=== PATIENT | male | born 1965 | race Caucasian/White ===

== ENCOUNTER 2017-08-23 10:01 | Inpatient (IN) | payer OTHER ==
[~2017-08-23] VITALS: Ht 172.7 cm; Wt 74.8 kg
[~2017-08-23 10:01] MED LIST: BUDE10.2 IH; CLAR-13 PO
[2017-08-23] MEDS ORDERED: IV NORMAL SALINE 1,000ML 1,000 ML IV SCH ×2 (10:15→12:15)
[2017-08-23] MEDS ORDERED: IOHEXOL 300 MG/ML 75 ML VIAL. IV ONE (10:30)
[2017-08-23] MEDS ORDERED: CONTRAST GIVEN MC PRN (10:30)
[2017-08-23 11:00] LABS: ALBUMIN 3.7 g/dL (3.4-5.0); ALBUMIN/GLOBULIN RATIO 1.1 (1.0-1.7); CALCIUM 8.5 mg/dL (8.5-10.1); CREATININE 1.1 mg/dL (0.7-1.3); POTASSIUM 4.1 mmol/L (3.5-5.1); TOTAL PROTEIN 7.1 g/dL (6.4-8.2)
[2017-08-23 11:09] LABS: BASO # 0.1 x10^3/uL (0.0-0.2); BASO % 1 % (0-3); EOS # 0.2 x10^3/uL (0.0-0.7); EOS % 1 % (0-3); HEMATOCRIT 49.5 % (39.0-53.0); HEMOGLOBIN 17.5 g/dL (13.0-17.5); LYMPH % 19 % (24-48); MEAN CORPUSCULAR HEMOGLOBIN 33 pg (25-35); MEAN CORPUSCULAR HGB CONC 35 g/dL (31-37); MEAN CORPUSCULAR VOLUME 93 fL (79-100); MONO # 1.8 x10^3/uL (0.0-1.1); MONO % 11 % (0-9); NEUT # 10.5 x10^3uL (1.8-7.7); NEUT % 67 % (31-73); PLATELET COUNT 220 x10^3/uL (140-400); RED BLOOD COUNT 5.33 x10^6/uL (4.30-5.70); RED CELL DISTRIBUTION WIDTH 12.7 % (11.5-14.5); WHITE BLOOD COUNT 15.5 x10^3/uL (4.0-11.0)
--- NOTE | 2017-08-23 11:23 | RAD ---
CT scan of the abdomen and pelvis with contrast 08/23/2017 Clinical history: Lower abdominal pain for one day. Technique: After the intravenous administration of 75 cc of Omnipaque 300 only, contiguous, 5 mm axial sections were obtained through the abdomen and pelvis. One or more of the following individualized dose reduction techniques were utilized for this study: 1. Automated exposure control. 2. Adjustment of the mA and/or kV according to patient size. 3. Use of iterative reconstruction technique. Findings: Images through the lung bases are within normal limits. The liver parenchyma has a decreased attenuation consistent with mild fatty infiltration. No focal abnormality of the liver is seen. The spleen, pancreas, and adrenal glands are within normal limits. Peripelvic cysts are seen involving both kidneys. These measure 1 to 2.5 cm in size. Mild atherosclerotic calcification of the abdominal aorta is seen. The abdominal aorta tapers normally. The gallbladder is well-distended. No free fluid or free air is seen within the abdomen. There is no evidence of bowel obstruction. The appendix is not visualized. No inflammatory changes are seen adjacent to the cecum. Multiple diverticula are seen involving the sigmoid colon. Wall thickening of the proximal sigmoid colon is seen. Increased density is seen within the adjacent fat. These findings are consistent with diverticulitis. Extraluminal collections of air are seen within the mesenteric fat in this region consistent with a microperforation. No abnormal fluid collection is seen suggest evidence of an abscess. Images through the pelvis demonstrate the urinary bladder distended with urine. A moderate sized left inguinal hernia is seen which contains fat. This measures 6 cm in greatest diameter. No free fluid is seen. Mild S-shaped curvature of the thoracolumbar spine is noted. Degenerative changes are seen involving the lower thoracic and throughout the lumbar spine and both hips. Impression: Findings consistent with sigmoid diverticulitis. Extraluminal collections of air are seen within the adjacent mesenteric fat consistent with a microperforation. No abscess is seen.
[2017-08-23] MEDS ORDERED: PIPERACILLIN/TAZOBACTAM 3.375 GM in IV NORMAL SALINE 50ML 50 ML IV ONE (12:00)
[2017-08-23 12:07] LABS: BILIRUBIN,URINE NEG (NEG); CLARITY,URINE CLEAR; COLOR,URINE YELLOW; GLUCOSE,URINE NEG (NEG); NITRITE,URINE NEG (NEG); RBC,URINE 0 /HPF (0-2); UROBILINOGEN,URINE 0.2 mg/dL (0.2 mg/dL); WBC,URINE 0 /HPF (0-4)
[2017-08-23 12:08] LABS: BACTERIA,URINE 0 /HPF (0-FEW)
[2017-08-23] MEDS ORDERED: ONDANSETRON PF 4 MG/2 ML VIAL. IV PRN ×2 (12:15→13:15)
[2017-08-23] MEDS ORDERED: PIP/TAZO PER PHARMACY MC PRN (12:15)
--- NOTE | 2017-08-23 12:15 | PHYS DOC ---
Past History Past Medical History: Asthma, COPD, Diverticulitis, IBS Past Surgical History: Appendectomy, Knee Replacement, Tonsillectomy, Other Smoking: Cigarettes, Greater than 1 pack/day Alcohol Use: Occasionally Additional Alcohol Information: drank last night Drug Use: None Adult General Chief Complaint Chief Complaint: ABDOMINAL PAIN HPI HPI Patient is a 52-year-old male brought from home by EMS with the complaint of severe abdominal pain. Patient has had abdominal pain for about a week but it's been worse for the last 2 days and is especially bad today. He has felt " plugged up" but has not taken a laxative. He sat on the toilet a few times without results. He feels "bloated". He's had some nausea but no vomiting. "I feel like my intestines or twisted". "It feels like a major gas pain". The patient has had problems like this before which were attributed to constipation. Patient has a history of "IBS" and has been told that he has diverticulosis. Patient has a history of COPD and major depression. Review of Systems Review of Systems Constitutional: Denies fever or chills [] HENT: Denies nasal congestion or sore throat [] Respiratory: He has some chronic COPD symptoms including cough Cardiovascular: Denies chest pain GI: As in history of present illness : Denies dysuria or hematuria [] Musculoskeletal: Denies back pain or joint pain [] Integument: Denies rash or skin lesions [] Neurologic: Denies headache, focal weakness or sensory changes [] Current Medications Current Medications Current Medications Medications (Trade) Dose Ordered Sig/Jessica Start Time Stop Time Status Last Admin Dose Admin Fentanyl Citrate (Fentanyl 2ml Vial) 100 mcg 1X ONCE 08/23/17 12:00 08/23/17 12:01 DC 08/23/17 11:58 100 MCG Info (Do NOT chart on this entry -- for MONITORING) 1 each PRN DAILY PRN 08/23/17 10:30 08/25/17 10:29 Iohexol (Omnipaque 300 Mg/ml) 75 ml 1X ONCE 08/23/17 10:30 08/23/17 10:31 DC 08/23/17 10:40 75 ML Piperacillin Sod/ Tazobactam Sod 3.375 gm/Sodium Chloride 50 ml @ 100 mls/hr 1X ONCE 08/23/17 12:00 08/23/17 12:29 Sodium Chloride 1,000 ml @ 1,000 mls/hr Q1H 08/23/17 10:15 08/23/17 11:15 DC 08/23/17 10:15 1,000 MLS/HR Allergies Allergies Allergies Coded Allergies Type Severity Reaction Last Updated Verified No Known Drug Allergies 03/02/14 No Physical Exam Physical Exam Constitutional: Well developed, well nourished, alert, mentating normally, yelling out in pain, he has difficulty moving on the cart and difficulty laying on his back for the exam. HENT: Normocephalic, atraumatic, bilateral external ears normal, nose normal. [ ] Eyes: conjunctiva normal, no discharge. [] Neck: Normal range of motion, no stridor. [] Cardiovascular:Heart rate regular rhythm, no murmur [] Lungs & Thorax: Bilateral breath sounds clear to auscultation [] Abdomen: Bowel sounds quiet, no masses, no pulsatile masses. No increased tympany. Moderately tender throughout without guarding. Mostly tender in the left lower quadrant but there is tenderness throughout. There is a very small umbilical hernia that is tender but is small and unremarkable. There is palpable fullness in the left groin consistent with a left inguinal hernia. I was not able to reduce that fullness. No extension of the hernia into the scrotum. Skin: Warm, dry, no erythema, no rash. [] Extremities: No tenderness, no cyanosis, no clubbing, ROM intact, no edema. [] Neurologic: Alert and oriented X 3, normal motor function, no focal deficits noted. [] Current Patient Data Vital Signs Vital Signs Date Time Temp Pulse Resp B/P (MAP) Pulse Ox O2 Delivery O2 Flow Rate FiO2 08/23/17 11:58 16 94 08/23/17 10:20 Room Air 08/23/17 10:04 98.3 79 Lab Results Laboratory Tests Test 08/23/17 10:28 08/23/17 11:51 White Blood Count 15.5 x10^3/uL (4.0-11.0) H Red Blood Count 5.33 x10^6/uL (4.30-5.70) Hemoglobin 17.5 g/dL (13.0-17.5) Hematocrit 49.5 % (39.0-53.0) Mean Corpuscular Volume 93 fL (79-100) Mean Corpuscular Hemoglobin 33 pg (25-35) Mean Corpuscular Hemoglobin Concent 35 g/dL (31-37) Red Cell Distribution Width 12.7 % (11.5-14.5) Platelet Count 220 x10^3/uL (140-400) Neutrophils (%) (Auto) 67 % (31-73) Lymphocytes (%) (Auto) 19 % (24-48) L Monocytes (%) (Auto) 11 % (0-9) H Eosinophils (%) (Auto) 1 % (0-3) Basophils (%) (Auto) 1 % (0-3) Neutrophils # (Auto) 10.5 x10^3uL (1.8-7.7) H Lymphocytes # (Auto) 3.0 x10^3/uL (1.0-4.8) Monocytes # (Auto) 1.8 x10^3/uL (0.0-1.1) H Eosinophils # (Auto) 0.2 x10^3/uL (0.0-0.7) Basophils # (Auto) 0.1 x10^3/uL (0.0-0.2) Platelet Estimate Pending Sodium Level 140 mmol/L (136-145) Potassium Level 4.1 mmol/L (3.5-5.1) Chloride Level 105 mmol/L (98-107) Carbon Dioxide Level 23 mmol/L (21-32) Anion Gap 12 (6-14) Blood Urea Nitrogen 14 mg/dL (8-26) Creatinine 1.1 mg/dL (0.7-1.3) Estimated GFR (Cockcroft-Gault) 70.0 BUN/Creatinine Ratio 13 (6-20) Glucose Level 109 mg/dL (70-99) H Calcium Level 8.5 mg/dL (8.5-10.1) Total Bilirubin 1.0 mg/dL (0.2-1.0) Aspartate Amino Transferase (AST) 11 U/L (15-37) L Alanine Aminotransferase (ALT) 26 U/L (16-63) Alkaline Phosphatase 81 U/L (46-116) Total Protein 7.1 g/dL (6.4-8.2) Albumin 3.7 g/dL (3.4-5.0) Albumin/Globulin Ratio 1.1 (1.0-1.7) Lipase 119 U/L (73-393) Urine Collection Type Unknown Urine Color Yellow Urine Clarity Clear Urine pH 6.0 Urine Specific [place] <=1.005 Urine Protein Neg (NEG-TRACE) Urine Glucose (UA) Neg mg/dL (NEG) Urine Ketones (Stick) Neg mg/dL (NEG) Urine Blood Trace (NEG) Urine Nitrite Neg (NEG) Urine Bilirubin Neg (NEG) Urine Urobilinogen Dipstick 0.2 mg/dL (0.2 mg/dL) Urine Leukocyte Esterase Neg (NEG) Urine RBC 0 /HPF (0-2) Urine WBC 0 /HPF (0-4) Urine Squamous Epithelial Cells None /LPF Urine Bacteria 0 /HPF (0-FEW) Urine Mucus Slight /LPF EKG EKG [] Radiology/Procedures Radiology/Procedures CT scan of the abdomen and pelvis with IV contrast read by the radiologist. Significant for sigmoid diverticulitis with findings consistent with microperforation. No abscess, no free air.[] Course & Med Decision Making Course & Med Decision Making Pertinent Labs and Imaging studies reviewed. (See chart for details) 52-year-old male presented with a week of abdominal pain, worsening, much worse today. The patient was given IV fluids and IV pain and nausea medications. His abdomen is tender but he does not have rebound or guarding. The patient did not have any vomiting in the ED. White count elevated. CT scan is consistent with sigmoid diverticulitis with microperforation, however no free air or abscess formation. Patient required multiple doses of IV fentanyl to get his pain under control. The nurse and I both had a long talk with the patient to adjust his expectations. We emphasized to him that we can help the severity of his pain with IV pain medicine but we will not be able to take it to 0. Additionally after several doses of fentanyl he dropped his sats and required a little supplemental oxygen. The patient does have COPD and I will write for nebulized albuterol in the hospital. I discussed with the patient that he should be admitted for IV antibiotics, bowel rest, IV pain management. He is agreeable to that plan. I discussed the case with Dr. Cohen, [facility], who will admit the patient. I wrote bridge orders. [] Dragon Disclaimer Dragon Disclaimer This chart was dictated in whole or in part using Voice Recognition software in a busy, high-work load, and often noisy Emergency Department environment. It may contain unintended and wholly unrecognized errors or omissions. Departure Departure: Impression: Primary Impression: Sigmoid diverticulitis Disposition: ADMITTED INPATIENT Admitting Physician: Tuan Cohen Condition: STABLE Referrals: TAMMI FRANKS (PCP) HAJA BOJORQUEZ MD Aug 23, 2017 12:15
[2017-08-23 12:16] LABS: % BANDS 2 % (0-9); % SEGS 66 % (35-66)
[2017-08-23 12:17] LABS: % BASOS 0 % (0-3); % EOS 0 % (0-5); % LYMPHS 18 % (24-48); % MONOS 14 % (0-10); PLATELET CLUMP PRESENT; PLT ESTIMATE ADEQUATE (ADEQUATE)
[2017-08-23] MEDS ORDERED: PIPERACILLIN/TAZOBACTAM 3.375 GM VIAL IV ONE (12:30)
[2017-08-23] MEDS ORDERED: IV NORMAL SALINE 50ML 50 ML ONE (12:30)
[2017-08-23] MEDS ORDERED: BUSP15TA PO (13:14)
[2017-08-23] MEDS ORDERED: ELECTROLYTE (NON-ICU) PROTOCOL MC PRN (13:15)
[2017-08-23] MEDS ORDERED: IV RINGERS SOLUTION,LACTATED 1,000 ML IV SCH (13:15)
[2017-08-23] MEDS ORDERED: PROCHLORPERAZINE 10 MG/2 ML VIAL. IV PRN (13:15)
[2017-08-23] MEDS ORDERED: METOCLOPRAMIDE HCL 10 MG/2 ML VIAL. IV PRN (13:15)
[2017-08-23] MEDS ORDERED: NALOXONE 0.4 MG/ML VIAL. IV PRN (13:15)
[2017-08-23] MEDS ORDERED: diphenhydrAMINE HCL 25 MG CAPSULE PO PRN (13:15)
[2017-08-23] MEDS ORDERED: PROMETHAZINE 12.5 MG in IV NORMAL SALINE 50ML 50 ML IV PRN (13:15)
[2017-08-23] MEDS ORDERED: diphenhydrAMINE 50 MG/ML VIAL IV PRN (13:15)
[2017-08-23] MEDS ORDERED: 0.9 % SODIUM CHLORIDE 10 ML DISP.SYRIN. IV PRN (13:15)
--- NOTE | 2017-08-23 13:42 | PDOC1 ---
History of Present Illness Reason for Visit: Abdominal pain History of Present Illness Pt reports that he had been having constipation issues for a while prior to today. He says he had some diarrhea and that triggered this pain in his abdomen. He feels nauseated but no vomiting. No blood in stool. No CP or SOA. No fever or chills. Pt has not eaten today. Pt reports he has had diverticulitis before, but has never had a colonoscopy. He states he needs something for pain as he is very uncomfortable. Chief Complaint: ABDOMINAL PAIN Allergies: Coded Allergies: No Known Drug Allergies (Unverified , 03/02/14) Past Medical History Cardiac: No pertinent hx Pulmonary: COPD GI: Other (Diverticulitis) Past Surgical History: Appendectomy, Hernia Repair (x 2 (currently has known left inguinal hernia and umbilical hernia)), Other (Rotator cuff surgery x 3) Family History: No pertinent hx Past Social History Smoke: 1 pack per day Alcohol: none Drugs: None Lives: with Family Review of Systems Review Of Systems Fourteen system , review of systems has been reviewed. See HPI for pertinent positives and negative responses, other gray all other systems are negative, non pertinent or non contributory Constitutional: No: Fever, Chills, Sweats, Weakness Eyes: No: Blurry vision, Double vision ENT: No: Ear pain, Nose pain, Mouth pain Respiratory: No: Cough, Shortness of breath, Tachypnea, Wheezing Cardiovascular: No: Chest Pain, Palpitations, Orthopnea, Paroxysmal Noc. Dyspnea, Edema Gastrointestinal: YES: Nausea, Abdominal Pain, Diarrhea, No: Vomiting, Constipation, Melena, Hematochezia Genitourinary: No: Dysuria, Henaturia Musculoskeletal: No: Joint Pain, Muscle Pain SKIN: YES: Warm, Dry, No Rashes Neurological: No: Dizziness, Headaches, Numbness/Tingling, Speech Problems, Tremors, Visual Changes, Weakness Allergies: Coded Allergies: No Known Drug Allergies (Unverified , 03/02/14) Medications Current Medications Fentanyl Citrate (Fentanyl 2ml Vial) 50 mcg PRN Q15MIN PRN IV PAIN GREATER THAN 3/10 Last administered on 08/23/17t 11:07; Start 08/23/17 at 10:15; Stop at 12:54; Status DC Sodium Chloride 1,000 ml @ 1,000 mls/hr Q1H IV Last administered on 08/23/17 10:15; Start 08/23/17 at 10:15; Stop 08/23/17 at 11:15; Status DC Iohexol (Omnipaque 300 Mg/ml) 75 ml 1X ONCE IV Last administered on 08/23/17 10:40; Start 08/23/17 at 10:30; Stop 08/23/17 at 10:31; Status DC Info (Do NOT chart on this entry -- for MONITORING) 1 each PRN DAILY PRN MC SEE COMMENTS; Start 08/23/17 at 10:30; Stop 08/25/17 at 10:29 Piperacillin Sod/ Tazobactam Sod 3.375 gm/Sodium Chloride 50 ml @ 100 mls/hr 1X ONCE IV ; Start 08/23/17 at 12:00; Stop 08/23/17 at 12:29; Status DC Fentanyl Citrate (Fentanyl 2ml Vial) 100 mcg 1X ONCE IV Last administered on 11:58; Start 08/23/17 at 12:00; Stop 08/23/17 at 12:01; Status DC Ondansetron HCl (Zofran) 4 mg PRN Q4HRS PRN IV NAUSEA/VOMITING; Start 08/23/17 at 12:15; Stop 08/24/17 at 12:14 Fentanyl Citrate (Fentanyl 2ml Vial) 50 mcg PRN Q2HR PRN IV PAIN; Start at 12:15; Stop 08/24/17 at 12:14 Sodium Chloride 1,000 ml @ 100 mls/hr Q10H IV ; Start 08/23/17 at 12:15; Stop 08/24/17 at 12:14 Metronidazole 100 ml @ 100 mls/hr Q8HRS IV ; Start 08/23/17 at 14:00 Piperacillin Sod/ Tazobactam Sod (Zosyn Per Pharmacy) 1 each PRN DAILY PRN MC SEE COMMENTS Last administered on 08/23/17 13:04; Start 08/23/17 at 12:15 Sodium Chloride 50 ml @ As Directed STK-MED ONCE .ROUTE ; Start 08/23/17 at 12: 30; Stop 08/23/17 at 12:31; Status DC Piperacillin Sod/ Tazobactam Sod (Zosyn) 3.375 gm STK-MED ONCE IV ; Start at 12:30; Stop 08/23/17 at 12:31; Status DC Piperacillin Sod/ Tazobactam Sod 3.375 gm/Sodium Chloride 50 ml @ 100 mls/hr Q6HRS IV ; Start 08/23/17 at 18:00 Albuterol/ Ipratropium (Duoneb) 3 ml RTQID NEB Last administered on 08/23/17t 13:11; Start 08/23/17 at 16:00 Prochlorperazine Edisylate (Compazine) 10 mg PRN Q4HRS PRN IV NAUSEA/VOMITING; Start 08/23/17 at 13:15; Status UNV Active Scripts Active Reported Buspirone Hcl 15 Mg Tablet 1 Tab PO BID Symbicort 160-4.5 Mcg Inhaler (Budesonide/Formoterol Fumarate) 10.2 Gm Hfa.aer.ad 2 Puff IH BID Exam Vital Signs Vital Signs Date Time Temp Pulse Resp B/P (MAP) Pulse Ox O2 Delivery O2 Flow Rate FiO2 08/23/17 13:12 95 Nasal Cannula 2.0 08/23/17 11:58 16 08/23/17 10:04 98.3 79 General Appearance: Alert, Oriented X3, Cooperative, mild distress (Appears in mild-moderate pain) HEENT: Atraumatic, PERRLA, EOMI, Mucous membr. moist/pink, Other (Neck supple, full ROM, no JVD, no LAD, no thyromegaly) Respiratory: Clear to auscultation, Normal air movement Heart: Regular rate, Normal S1, Normal S2, No murmurs Abdominal: Normal bowel sounds, No hepatospenomegaly, No masses, Other ( Diffusely TTP without point TTP. No rebound, +voluntary guarding. Abdomen is soft without rigidity. There is a reducible umbilical hernia that is NTTP) Extremities: No edema, Normal pulses, No tenderness/swelling Skin: No rashes, No breakdown Neuro: Normal speech, Strength at 5/5 X4 ext, Normal tone, Sensation intact, Cranial nerves 3-12 NL Psych/Mental Status: Mental status NL, Mood NL Assessment/Plan Assessment/Plan 1. Acute sigmoid diverticulitis w/ microperforation: Hopefully this will calm down w/ IV abx, NPO status, IVF, and pain BED MANAGER. If pt worsens, will need transfer to [facility] for surgical evaluation. Pt will need CO2 monitor on at all times while on BED MANAGER given his hx of COPD and risk of respiratory depression, coma , and . Pt and family v/u, wish to proceed w/ BED MANAGER. Pt will need colonoscopy as outpatient once everything has calmed down. 2. COPD: COntinue PRN nebs and daily Symbicort (or equivalent). Monitor O2 sats and CO2 while on BED MANAGER. 3. DVT proph: Hold Lovenox for now, if going to be bed-confined past tomorrow AM will start Lovenox. SCD's while in bed. 4. Disp: Pt's acute illness and requirement for IV abx and continuous pain medication necessitates likely at least 2 midnights in the hospital. He will be admitted as an inpatient. 5. Umbilical and left inguinal hernias: Stable, pt will need f/u as an outpatient. COURSE Allergies Coded Allergies Type Severity Reaction Last Updated Verified No Known Drug Allergies 03/02/14 No Laboratory Tests Test 08/23/17 10:28 08/23/17 11:51 White Blood Count 15.5 x10^3/uL (4.0-11.0) Red Blood Count 5.33 x10^6/uL (4.30-5.70) Hemoglobin 17.5 g/dL (13.0-17.5) Hematocrit 49.5 % (39.0-53.0) Mean Corpuscular Volume 93 fL (79-100) Mean Corpuscular Hemoglobin 33 pg (25-35) Mean Corpuscular Hemoglobin Concent 35 g/dL (31-37) Red Cell Distribution Width 12.7 % (11.5-14.5) Platelet Count 220 x10^3/uL (140-400) Neutrophils (%) (Auto) 67 % (31-73) Lymphocytes (%) (Auto) 19 % (24-48) Monocytes (%) (Auto) 11 % (0-9) Eosinophils (%) (Auto) 1 % (0-3) Basophils (%) (Auto) 1 % (0-3) Neutrophils # (Auto) 10.5 x10^3uL (1.8-7.7) Lymphocytes # (Auto) 3.0 x10^3/uL (1.0-4.8) Monocytes # (Auto) 1.8 x10^3/uL (0.0-1.1) Eosinophils # (Auto) 0.2 x10^3/uL (0.0-0.7) Basophils # (Auto) 0.1 x10^3/uL (0.0-0.2) Segmented Neutrophils % 66 % (35-66) Band Neutrophils % 2 % (0-9) Lymphocytes % 18 % (24-48) Monocytes % 14 % (0-10) Eosinophils % 0 % (0-5) Basophils % 0 % (0-3) Platelet Estimate Adequate (ADEQUATE) Platelet Clumps, EDTA Present Sodium Level 140 mmol/L (136-145) Potassium Level 4.1 mmol/L (3.5-5.1) Chloride Level 105 mmol/L (98-107) Carbon Dioxide Level 23 mmol/L (21-32) Anion Gap 12 (6-14) Blood Urea Nitrogen 14 mg/dL (8-26) Creatinine 1.1 mg/dL (0.7-1.3) Estimated GFR (Cockcroft-Gault) 70.0 BUN/Creatinine Ratio 13 (6-20) Glucose Level 109 mg/dL (70-99) Calcium Level 8.5 mg/dL (8.5-10.1) Total Bilirubin 1.0 mg/dL (0.2-1.0) Aspartate Amino Transf (AST/SGOT) 11 U/L (15-37) Alanine Aminotransferase (ALT/SGPT) 26 U/L (16-63) Alkaline Phosphatase 81 U/L (46-116) Total Protein 7.1 g/dL (6.4-8.2) Albumin 3.7 g/dL (3.4-5.0) Albumin/Globulin Ratio 1.1 (1.0-1.7) Lipase 119 U/L (73-393) Urine Collection Type Unknown Urine Color Yellow Urine Clarity Clear Urine pH 6.0 Urine Specific [place] <=1.005 Urine Protein Neg (NEG-TRACE) Urine Glucose (UA) Neg mg/dL (NEG) Urine Ketones (Stick) Neg mg/dL (NEG) Urine Blood Trace (NEG) Urine Nitrite Neg (NEG) Urine Bilirubin Neg (NEG) Urine Urobilinogen Dipstick 0.2 mg/dL (0.2 mg/dL) Urine Leukocyte Esterase Neg (NEG) Urine RBC 0 /HPF (0-2) Urine WBC 0 /HPF (0-4) Urine Squamous Epithelial Cells None /LPF Urine Bacteria 0 /HPF (0-FEW) Urine Mucus Slight /LPF Current Medications Medications (Trade) Dose Ordered Sig/Jessica Route PRN Reason Start Time Stop Time Status Last Admin Dose Admin Fentanyl Citrate (Fentanyl 2ml Vial) 50 mcg PRN Q15MIN PRN IV PAIN GREATER THAN 3/10 08/23/17 10:15 08/23/17 12:54 DC 08/23/17 11:07 Sodium Chloride 1,000 ml @ 1,000 mls/hr Q1H IV 08/23/17 10:15 08/23/17 11:15 DC 08/23/17 10:15 Iohexol (Omnipaque 300 Mg/ml) 75 ml 1X ONCE IV 08/23/17 10:30 08/23/17 10:31 DC 08/23/17 10:40 Info (Do NOT chart on this entry -- for MONITORING) 1 each PRN DAILY PRN MC SEE COMMENTS 08/23/17 10:30 08/25/17 10:29 Piperacillin Sod/ Tazobactam Sod 3.375 gm/Sodium Chloride 50 ml @ 100 mls/hr 1X ONCE IV 08/23/17 12:00 08/23/17 12:29 DC Fentanyl Citrate (Fentanyl 2ml Vial) 100 mcg 1X ONCE IV 08/23/17 12:00 08/23/17 12:01 DC 08/23/17 11:58 Ondansetron HCl (Zofran) 4 mg PRN Q4HRS PRN IV NAUSEA/VOMITING 08/23/17 12:15 08/24/17 12:14 Fentanyl Citrate (Fentanyl 2ml Vial) 50 mcg PRN Q2HR PRN IV PAIN 08/23/17 12:15 08/24/17 12:14 Sodium Chloride 1,000 ml @ 100 mls/hr Q10H IV 08/23/17 12:15 08/24/17 12:14 Metronidazole 100 ml @ 100 mls/hr Q8HRS IV 08/23/17 14:00 Piperacillin Sod/ Tazobactam Sod (Zosyn Per Pharmacy) 1 each PRN DAILY PRN MC SEE COMMENTS 08/23/17 12:15 08/23/17 13:04 Sodium Chloride 50 ml @ As Directed STK-MED ONCE .ROUTE 08/23/17 12:30 08/23/17 12:31 DC Piperacillin Sod/ Tazobactam Sod (Zosyn) 3.375 gm STK-MED ONCE IV 08/23/17 12:30 08/23/17 12:31 DC Piperacillin Sod/ Tazobactam Sod 3.375 gm/Sodium Chloride 50 ml @ 100 mls/hr Q6HRS IV 08/23/17 18:00 Albuterol/ Ipratropium (Duoneb) 3 ml RTQID NEB 08/23/17 16:00 08/23/17 13:11 Prochlorperazine Edisylate (Compazine) 10 mg PRN Q4HRS PRN IV NAUSEA/VOMITING 08/23/17 13:15 UNV Vital Signs Date Time Temp Pulse Resp B/P (MAP) Pulse Ox O2 Delivery O2 Flow Rate FiO2 08/23/17 13:12 95 Nasal Cannula 2.0 08/23/17 11:58 16 08/23/17 10:[address] scan of the abdomen and pelvis with contrast 08/23/2017 Clinical history: Lower abdominal pain for one day. Technique: After the intravenous administration of 75 cc of Omnipaque 300 only, contiguous, 5 mm axial sections were obtained through the abdomen and pelvis. One or more of the following individualized dose reduction techniques were utilized for this study: 1. Automated exposure control. 2. Adjustment of the mA and/or kV according to patient size. 3. Use of iterative reconstruction technique. Findings: Images through the lung bases are within normal limits. The liver parenchyma has a decreased attenuation consistent with mild fatty infiltration. No focal abnormality of the liver is seen. The spleen, pancreas, and adrenal glands are within normal limits. Peripelvic cysts are seen involving both kidneys. These measure 1 to 2.5 cm in size. Mild atherosclerotic calcification of the abdominal aorta is seen. The abdominal aorta tapers normally. The gallbladder is well-distended. No free fluid or free air is seen within the abdomen. There is no evidence of bowel obstruction. The appendix is not visualized. No inflammatory changes are seen adjacent to the cecum. Multiple diverticula are seen involving the sigmoid colon. Wall thickening of the proximal sigmoid colon is seen. Increased density is seen within the adjacent fat. These findings are consistent with diverticulitis. Extraluminal collections of air are seen within the mesenteric fat in this region consistent with a microperforation. No abnormal fluid collection is seen suggest evidence of an abscess. Images through the pelvis demonstrate the urinary bladder distended with urine. A moderate sized left inguinal hernia is seen which contains fat. This measures 6 cm in greatest diameter. No free fluid is seen. Mild S-shaped curvature of the thoracolumbar spine is noted. Degenerative changes are seen involving the lower thoracic and throughout the lumbar spine and both hips. Impression: Findings consistent with sigmoid diverticulitis. Extraluminal collections of air are seen within the adjacent mesenteric fat consistent with a microperforation. No abscess is seen. ESTELITA CULP MD Aug 23, 2017 13:42
[2017-08-23 14:31] VITALS: BP 129/78
--- NOTE | 2017-08-23 15:35 | DISCH ---
DISCHARGE INSTRUCTIONS-DC Condition on Discharge Condition on Discharge: Guarded Problems: Activity after Discharge Activity Instructions for Disc: Bedrest today Diet after Discharge Additional Diet Restrictions: Nothing by mouth Follow-Up Follow up with: PCP after discharge ESTELITA CULP MD Aug 23, 2017 15:35
--- NOTE | 2017-08-23 15:41 | PDOC3 ---
Discharge Summary Discharge Summary Date of Admission Date of Admission: Aug 23, 2017 at 12:31 Admitting Diagnosis Acute sigmoid diverticulitis COPD Bilateral inguinal hernias Date of Discharge: Aug 23, 2017 Discharge Diagnosis Acute sigmoid diverticulitis COPD Bilateral inguinal hernias Acute urinary retention Laboratory Findings Laboratory Tests Test 08/23/17 10:28 08/23/17 11:51 08/23/17 13:49 White Blood Count 15.5 x10^3/uL (4.0-11.0) Red Blood Count 5.33 x10^6/uL (4.30-5.70) Hemoglobin 17.5 g/dL (13.0-17.5) Hematocrit 49.5 % (39.0-53.0) Mean Corpuscular Volume 93 fL (79-100) Mean Corpuscular Hemoglobin 33 pg (25-35) Mean Corpuscular Hemoglobin Concent 35 g/dL (31-37) Red Cell Distribution Width 12.7 % (11.5-14.5) Platelet Count 220 x10^3/uL (140-400) Neutrophils (%) (Auto) 67 % (31-73) Lymphocytes (%) (Auto) 19 % (24-48) Monocytes (%) (Auto) 11 % (0-9) Eosinophils (%) (Auto) 1 % (0-3) Basophils (%) (Auto) 1 % (0-3) Neutrophils # (Auto) 10.5 x10^3uL (1.8-7.7) Lymphocytes # (Auto) 3.0 x10^3/uL (1.0-4.8) Monocytes # (Auto) 1.8 x10^3/uL (0.0-1.1) Eosinophils # (Auto) 0.2 x10^3/uL (0.0-0.7) Basophils # (Auto) 0.1 x10^3/uL (0.0-0.2) Segmented Neutrophils % 66 % (35-66) Band Neutrophils % 2 % (0-9) Lymphocytes % 18 % (24-48) Monocytes % 14 % (0-10) Eosinophils % 0 % (0-5) Basophils % 0 % (0-3) Platelet Estimate Adequate (ADEQUATE) Platelet Clumps, EDTA Present Sodium Level 140 mmol/L (136-145) Potassium Level 4.1 mmol/L (3.5-5.1) Chloride Level 105 mmol/L (98-107) Carbon Dioxide Level 23 mmol/L (21-32) Anion Gap 12 (6-14) Blood Urea Nitrogen 14 mg/dL (8-26) Creatinine 1.1 mg/dL (0.7-1.3) Estimated GFR (Cockcroft-Gault) 70.0 BUN/Creatinine Ratio 13 (6-20) Glucose Level 109 mg/dL (70-99) Calcium Level 8.5 mg/dL (8.5-10.1) Total Bilirubin 1.0 mg/dL (0.2-1.0) Aspartate Amino Transf (AST/SGOT) 11 U/L (15-37) Alanine Aminotransferase (ALT/SGPT) 26 U/L (16-63) Alkaline Phosphatase 81 U/L (46-116) Total Protein 7.1 g/dL (6.4-8.2) Albumin 3.7 g/dL (3.4-5.0) Albumin/Globulin Ratio 1.1 (1.0-1.7) Lipase 119 U/L (73-393) Urine Collection Type Unknown Urine Color Yellow Urine Clarity Clear Urine pH 6.0 Urine Specific [place] <=1.005 Urine Protein Neg (NEG-TRACE) Urine Glucose (UA) Neg mg/dL (NEG) Urine Ketones (Stick) Neg mg/dL (NEG) Urine Blood Trace (NEG) Urine Nitrite Neg (NEG) Urine Bilirubin Neg (NEG) Urine Urobilinogen Dipstick 0.2 mg/dL (0.2 mg/dL) Urine Leukocyte Esterase Neg (NEG) Urine RBC 0 /HPF (0-2) Urine WBC 0 /HPF (0-4) Urine Squamous Epithelial Cells None /LPF Urine Bacteria 0 /HPF (0-FEW) Urine Mucus Slight /LPF Lactic Acid Level 1.4 mmol/L (0.4-2.0) Hospital Course Pt was admitted for acute diverticulitis w/ microperforation. 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 After admission, pt reported weak urinary stream. Review of CT showed distended bladder. 2 attempts were made at straight cath. Catheters were placed appropriately, but after draining 25-30 cc, flow stopped. Has bilateral inguinal hernias that are recurrent, which may be impairing his ability to void. He is examined just prior to transport, and bowel sounds are diminished but not absent. Abdomen is diffusely TTP, most prominently in the LLQ, but on the NEW CAR DRIVER there is no guarding and no rebound TTP. Lactate was 1.4. He has been given one dose of Zosyn and one dose of Flagyl IV. He has received 1/2 liter of LR. We are transporting to [facility] via ground EMS, pt and his spouse are agreeable to this plan. Condition is guarded. Condition at Discharge: Guarded Home Meds Reported Medications Buspirone Hcl (BUSPIRONE HCL) 15 Mg Tablet, 1 TAB PO BID, #60 TAB 08/23/17 Budesonide/Formoterol Fumarate (SYMBICORT 160-4.5 MCG INHALER) 10.2 Gm Hfa.aer.ad, 2 PUFF IH BID, #10.6 GM 3 Refills 01/16/16 Discontinued Reported Medications Clarithromycin (CLARITHROMYCIN) 500 Mg Tablet, 1 TAB PO BID, #20 TAB 01/16/16 Inpatient Meds Current Medications Fentanyl Citrate (Fentanyl 2ml Vial) 50 mcg PRN Q15MIN PRN IV PAIN GREATER THAN 3/10 Last administered on 08/23/17 11:07; Start 08/23/17 at 10:15; Stop at 12:54; Status DC Sodium Chloride 1,000 ml @ 1,000 mls/hr Q1H IV Last administered on 08/23/17 10:15; Start 08/23/17 at 10:15; Stop 08/23/17 at 11:15; Status DC Iohexol (Omnipaque 300 Mg/ml) 75 ml 1X ONCE IV Last administered on 08/23/17 10:40; Start 08/23/17 at 10:30; Stop 08/23/17 at 10:31; Status DC Info (Do NOT chart on this entry -- for MONITORING) 1 each PRN DAILY PRN MC SEE COMMENTS; Start 08/23/17 at 10:30; Stop 08/25/17 at 10:29 Piperacillin Sod/ Tazobactam Sod 3.375 gm/Sodium Chloride 50 ml @ 100 mls/hr 1X ONCE IV Last administered on 08/23/17 12:00; Start 08/23/17 at 12:00; Stop 08/23/17 at 12:29; Status DC Fentanyl Citrate (Fentanyl 2ml Vial) 100 mcg 1X ONCE IV Last administered on 11:58; Start 08/23/17 at 12:00; Stop 08/23/17 at 12:01; Status DC Ondansetron HCl (Zofran) 4 mg PRN Q4HRS PRN IV NAUSEA/VOMITING Last administered on 08/23/17 13:29; Start 08/23/17 at 12:15; Stop 08/23/17 at 13:38 ; Status DC Fentanyl Citrate (Fentanyl 2ml Vial) 50 mcg PRN Q2HR PRN IV PAIN; Start at 12:15; Stop 08/24/17 at 12:14 Sodium Chloride 1,000 ml @ 100 mls/hr Q10H IV ; Start 08/23/17 at 12:15; Stop 08/24/17 at 12:14 Metronidazole 100 ml @ 100 mls/hr Q8HRS IV Last administered on 08/23/17 15: 12; Start 08/23/17 at 14:00 Piperacillin Sod/ Tazobactam Sod (Zosyn Per Pharmacy) 1 each PRN DAILY PRN MC SEE COMMENTS Last administered on 08/23/17 13:04; Start 08/23/17 at 12:15 Sodium Chloride 50 ml @ As Directed STK-MED ONCE .ROUTE ; Start 08/23/17 at 12: 30; Stop 08/23/17 at 12:31; Status DC Piperacillin Sod/ Tazobactam Sod (Zosyn) 3.375 gm STK-MED ONCE IV ; Start at 12:30; Stop 08/23/17 at 12:31; Status DC Piperacillin Sod/ Tazobactam Sod 3.375 gm/Sodium Chloride 50 ml @ 100 mls/hr Q6HRS IV ; Start 08/23/17 at 18:00 Albuterol/ Ipratropium (Duoneb) 3 ml RTQID NEB Last administered on 08/23/17 13:11; Start 08/23/17 at 16:00 Sodium Chloride (Normal Saline Flush) 3 ml PRN DAILY PRN IV AFTER MEDS AND BLOOD DRAWS; Start 08/23/17 at 13:15 Lactated Ringer's 1,000 ml @ 125 mls/hr Q10H IV Last administered on 13:31; Start 08/23/17 at 13:15 Info 1 ea CONT PRN PRN MC SEE COMMENTS; Start 08/23/17 at 13:15 Prochlorperazine Edisylate (Compazine) 10 mg PRN Q4HRS PRN IV NAUSEA/VOMITING; Start 08/23/17 at 13:15 Metoclopramide HCl (Reglan) 10 mg PRN Q6HRS PRN IV NAUSEA/VOMITING; Start 08/23 at 13:15 Promethazine HCl 12.5 mg/Sodium Chloride 50.5 ml @ 100 mls/hr PRN Q6HRS PRN IV NAUSEA/VOMITING; Start 08/23/17 at 13:15 Ondansetron HCl (Zofran) 4 mg PRN Q8HRS PRN IV NAUSEA/VOMITING Last administered on 08/23/17 13:46; Start 08/23/17 at 13:15 Diphenhydramine HCl (Benadryl) 25 mg PRN Q6HRS PRN PO SEE COMMENTS; Start 08/23 at 13:15 Diphenhydramine HCl (Benadryl) 25 mg PRN Q6HRS PRN IV SEE COMMENTS; Start 08/23 at 13:15 Naloxone HCl (Narcan) 0.4 mg PRN Q2MIN PRN IV SEE INSTRUCTIONS; Start 08/23/17 at 13:15 Hydromorphone HCl 30 ml @ 0 mls/hr CONT PRN PRN IV PROTOCOL Last administered on 08/23/17 13:47; Start 08/23/17 at 13:15 Active Scripts Active Reported Buspirone Hcl 15 Mg Tablet 1 Tab PO BID Symbicort 160-4.5 Mcg Inhaler (Budesonide/Formoterol Fumarate) 10.2 Gm Hfa.aer.ad 2 Puff IH BID Activity: bed rest Diet: ESTELITA LOPEZ MD Aug 23, 2017 15:41
[2017-08-23] MEDS ORDERED: IPRATRPIUM/ALBUTEROL 0.5/2.5MG 3 ML NEBU. NEB SCH (16:00)
[2017-08-23 16:18] VITALS: BP 107/69
[2017-08-23] MEDS ORDERED: PIPERACILLIN/TAZOBACTAM 3.375 GM in IV NORMAL SALINE 50ML 50 ML IV SCH (18:00)
== END 2017-08-23 16:30 | disposition short-term general hospital (02) | DRG 392 ==
LOC: ER 10:01 → 1 SOUTH 12:31
PROVIDERS: ADMIT Family Medicine; ATTEND Family Medicine
DX: K57.20 Diverticulitis of large intestine with perforation and abscess without bleeding (principal); F32.9 Major depressive disorder, single episode, unspecified; J44.9 Chronic obstructive pulmonary disease, unspecified; F17.210 Nicotine dependence, cigarettes, uncomplicated; K40.20 Bilateral inguinal hernia, without obstruction or gangrene, not specified as recurrent; Z90.49 Acquired absence of other specified parts of digestive tract; Z96.659 Presence of unspecified artificial knee joint; Z90.89 Acquired absence of other organs; R33.9 Retention of urine, unspecified; K58.9 Irritable bowel syndrome, unspecified
CPT/HCPCS: 36415; 74177; 80053; 81001; 83605; 83690; 85007; 85025; 87040; 94640; 96361; 96365; 96375; 96376; J1170; J2405; J2543; J3010; J3490; J7120; J7620; Q9967; 99285-25; J7030

== ENCOUNTER → 2020-11-14 | Outpatient (CLI) | payer OTHER ==
[~2020-11-14] MED LIST changes: +BUSP15TA PO; -CLAR-13 PO; +CLAR-7 PO; +IOHEXOL 240 MG/ML 50ML VIAL. ONE; +IOHEXOL 300 MG/ML 75 ML VIAL. IV ONE
--- NOTE | 2020-11-14 11:25 | RAD ---
EXAM: DUAL ENERGY X-RAY ABSORPTIOMETRY (DEXA). HISTORY: Postmenopausal screening. FINDINGS: The lowest measured T-score is -1.4 in the right femoral neck, based on a bone mineral dens ity of 0.891 g/cm^2. Refer to the worksheets for full detail. No comparison examinations are available. IMPRESSION: Low bone mass. Bone mineral density yields a T-score between -1.0 and -2.5. Fracture risk is increased. METHODOLOGY: Dual energy x-ray absorptiometry was performed to measure bone mineral density. The foll owing analysis is based on the 2019 Official Positions of the International Society for Clinical Dens itometry: Measurements of the hips and the average of L1-L4 are preferred. When the spine and/or hip cannot be feasibly measured or interpreted, or in the setting of hyperparathyroidism, distal radial bone minera l density may be measured. The lumbar spine T-score is based on the average bone mineral density of L1-L4. In the setting of art ifact or anatomic abnormality, some lumbar levels may be excluded, and the remaining levels used for calculation. A single lumbar level is not used for diagnosis, and if only a single level is available for assessment, another anatomic site will be used to assign a diagnosis. The hip T-score is based on the bone mineral density measurement of the femoral neck or total proxima l femur of either side, whichever is lowest. Bilateral mean values are not used for diagnosis. The forearm T-score is derived from 33% of the distal radius of the nondominant forearm. Electronically signed by: Essie Jackson MD (11/14/2020 11:23 AM) [id number]
--- NOTE | 2020-11-14 14:49 | RAD ---
CT abdomen pelvis with contrast dated 11/14/2020. No comparison available. CLINICAL INDICATION: Elevated PSA. Urinary retention. TECHNIQUE: Contiguous axial imaging of the abdomen pelvis performed following the intravenous administration of 75 cc Omnipaque 300. One or more of the following individualized dose reduction techniques were utilized for this examinat ion: 1. Automated exposure control 2. Adjustment of the mA and/or kV according to patient size 3. Use of iterative reconstruction technique. FINDINGS: Limited images of the lung bases are clear. Heart size within normal limits. No pleural or pericardia l effusion. Liver is homogeneous. No apparent hepatic mass. Biliary tree normal in caliber. Gallbladder unremarka ble. Spleen is normal in size. Pancreas, adrenal glands and kidneys are unremarkable. There are small josue pelvic cysts bilaterally. No hydronephrosis. Partially opacified GI tract normal in caliber and contour. No focal bowel wall thickening. No inflam matory stranding in the mesentery. No ascites or lymphadenopathy. The appendix is not clearly identif ied. Postoperative changes of the anterior abdominal wall with evidence of prior sigmoid colon resect ion. There is a broad hernia defect with small bowel loops interleaving between layers of the abdomin al wall musculature or mesh at the supraumbilical region. No bowel obstruction. Images of pelvis show moderately distended urinary bladder. There is mild diffuse bladder wall thicke michel. Prostate gland is within normal limits in size. No free fluid or lymphadenopathy. There is been interval repair of left inguinal hernia. A small right inguinal hernia persists. Bone windows show no acute findings. IMPRESSION: 1. Moderately distended urinary bladder with mild diffuse bladder wall thickening. Consider neurogeni c bladder or intermittent bladder outlet obstruction. The prostate gland is normal in size. 2. Status post sigmoid colon resection and ventral hernia repair and left inguinal repair. There is a recurrent hernia defect with small bowel loops that extend between postsurgical mesh or layers of th e abdominal wall musculature without evidence of bowel obstruction. Correlate clinically. 3. No acute findings. Electronically signed by: Olayinka Sutherland MD (11/14/2020 2:47 PM) [id number]
== END ==
LOC: DXRAD 10:02
PROVIDERS: ATTEND Nurse Practitioner Family
DX: N32.89 Other specified disorders of bladder (principal); K40.90 Unilateral inguinal hernia, without obstruction or gangrene, not specified as recurrent; R19.00 Intra-abdominal and pelvic swelling, mass and lump, unspecified site; M89.8X8 Other specified disorders of bone, other site; R97.20 Elevated prostate specific antigen [PSA]; R33.9 Retention of urine, unspecified
CPT/HCPCS: 74177; 77080; Q9967